=== PATIENT | male | born 1945 | race Caucasian/White ===

== ENCOUNTER → 2016-06-03 | Outpatient (CLI) | payer MEDICARE | END | disposition home or self-care (01) | LOC: YCHH 09:37 | PROVIDERS: ATTEND Family Medicine | DX: E11.319 Type 2 diabetes mellitus with unspecified diabetic retinopathy without macular edema (principal); I10 Essential (primary) hypertension; I25.10 Atherosclerotic heart disease of native coronary artery without angina pectoris; I69.993 Ataxia following unspecified cerebrovascular disease; R25.1 Tremor, unspecified ==

== ENCOUNTER → 2016-08-16 | Outpatient (CLI) | payer MEDICARE | END | disposition home or self-care (01) | LOC: YCHH 09:48 | PROVIDERS: ATTEND Family Medicine | DX: E11.319 Type 2 diabetes mellitus with unspecified diabetic retinopathy without macular edema (principal); I25.10 Atherosclerotic heart disease of native coronary artery without angina pectoris; R97.20 Elevated prostate specific antigen [PSA]; I10 Essential (primary) hypertension ==

== ENCOUNTER → 2016-11-21 | Outpatient (CLI) | payer MEDICARE | END | disposition home or self-care (01) | LOC: YCHH 09:23 | PROVIDERS: ATTEND Family Medicine | DX: E11.319 Type 2 diabetes mellitus with unspecified diabetic retinopathy without macular edema (principal); N39.0 Urinary tract infection, site not specified; E78.5 Hyperlipidemia, unspecified; D64.9 Anemia, unspecified ==

== ENCOUNTER → 2017-02-06 | Outpatient (CLI) | payer MEDICARE | END | disposition home or self-care (01) | LOC: YCHH 11:47 | PROVIDERS: ATTEND Family Medicine | DX: E11.319 Type 2 diabetes mellitus with unspecified diabetic retinopathy without macular edema (principal); I10 Essential (primary) hypertension; I25.10 Atherosclerotic heart disease of native coronary artery without angina pectoris; E78.5 Hyperlipidemia, unspecified ==

== ENCOUNTER 2017-02-27 12:40 | Emergency (ER) | payer MEDICARE ==
[2017-02-27 12:53] VITALS: TEMP 97.8
--- NOTE | 2017-02-27 13:22 | RAD ---
Portable chest INDICATION: Altered mental status hypoglycemia IMPRESSION: Mild cardiomegaly with vascular congestion and possible mild interstitial edema. No lobar consolidation. No large effusion or pneumothorax. Electronically signed by: Kenny Godinez MD 02/27/2017 1:21 PM NATIONAL ACCOUNT DIRECTOR
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
[2017-02-27 17:23] VITALS: BP 107/73; O2SAT 95
== END 2017-02-27 17:15 | disposition home or self-care (01) ==
LOC: ER 12:40
DX: E11.649 Type 2 diabetes mellitus with hypoglycemia without coma (principal); Z79.4 Long term (current) use of insulin; I51.7 Cardiomegaly; I10 Essential (primary) hypertension

== ENCOUNTER → 2017-05-08 | Outpatient (CLI) | payer MEDICARE | END | disposition home or self-care (01) | LOC: YCHH 09:40 | PROVIDERS: ATTEND Family Medicine | DX: E78.5 Hyperlipidemia, unspecified (principal); N18.9 Chronic kidney disease, unspecified; D64.9 Anemia, unspecified; E11.9 Type 2 diabetes mellitus without complications ==

== ENCOUNTER → 2017-08-14 | Outpatient (CLI) | payer MEDICARE | LOC: YCHH 09:24 | PROVIDERS: ATTEND Family Medicine | DX: E11.39 Type 2 diabetes mellitus with other diabetic ophthalmic complication (principal); N40.0 Benign prostatic hyperplasia without lower urinary tract symptoms; I25.10 Atherosclerotic heart disease of native coronary artery without angina pectoris; I10 Essential (primary) hypertension; E78.5 Hyperlipidemia, unspecified; D64.9 Anemia, unspecified; Z12.5 Encounter for screening for malignant neoplasm of prostate | CPT/HCPCS: 80053; 80061; 83036; 85025; G0103 ==

== ENCOUNTER → 2017-11-27 | Outpatient (CLI) | payer MEDICARE | LOC: YCHH 10:33 | PROVIDERS: ATTEND Family Medicine | DX: E11.39 Type 2 diabetes mellitus with other diabetic ophthalmic complication (principal); I10 Essential (primary) hypertension; E78.5 Hyperlipidemia, unspecified ==

== ENCOUNTER → 2018-02-26 | Outpatient (CLI) | payer MEDICARE | LOC: YCHH 09:48 | PROVIDERS: ATTEND Family Medicine | DX: E11.39 Type 2 diabetes mellitus with other diabetic ophthalmic complication (principal); I10 Essential (primary) hypertension; E78.5 Hyperlipidemia, unspecified; D64.9 Anemia, unspecified; N39.0 Urinary tract infection, site not specified ==

== ENCOUNTER → 2018-08-20 | Outpatient (CLI) | payer MEDICARE, OTHER | LOC: YCHH 09:37 | PROVIDERS: ATTEND Family Medicine | DX: E11.39 Type 2 diabetes mellitus with other diabetic ophthalmic complication (principal); I25.10 Atherosclerotic heart disease of native coronary artery without angina pectoris; I10 Essential (primary) hypertension ==

== ENCOUNTER → 2018-11-06 | Outpatient (CLI) | payer OTHER ==
--- NOTE | 2018-11-06 13:15 | MRI ---
EXAM DESCRIPTION: Brain w/wo Contrast CLINICAL HISTORY: DEMENTIA COMPARISON: Previous MRI of the brain May 15, 2014, previous head CT September 25, 2008 TECHNIQUE: MRI of the brain is performed according to our usual protocol including multiplanar multi sequence technique. Post gadolinium imaging is performed following administration of routine adult dose of IV gadolinium contrast. FINDINGS: Sagittal T1 images show intact corpus callosum. Prominent ventricles and sulci consistent with age-related cerebral volume loss Normal pituitary gland with normal T1 appearance of the dion and medulla and upper cervical cord. Normal signal intensity within the clivus and calvarium. Axial T2 fat sat images reveal preservation of intracranial vascular flow voids. Normal de leon matter T2 signal intensity with extensive white matter hyperintensity. Large ventricles and sulci are consistent with age related cerebral volume loss. Ventricles are more prominent than on earlier CT exam but bifrontal ventricular diameter is unchanged compared to the previous MRI of the brain May 15, 2014. The globes are asymmetrical, small on the right, with bilateral scleral banding. No abnormal fluid signal in the paranasal sinuses, tympanic cavities or mastoid air cells. Axial flair images show multifocal and confluent areas of increased signal intensity in the white matter consistent with chronic microvascular ischemic changes. The pattern is very similar to the previous study in April 2014. Diffusion weighted images are negative for focal intense increased signal intensity in the brain parenchyma to suggest restricted diffusion. ADC mapping is negative. Axial T1 precontrast images show normal de leon-white matter differentiation. No high signal intensity hemorrhagic lesion of the brain parenchyma. No subdural hematoma. Axial susceptibility weighted images are negative for focal signal loss to suggest abnormal brain parenchymal calcification or hemosiderin deposition. After IV contrast, axial T1 images show normal enhancement of intracranial vessels. No enhancing intracranial mass or abnormal parenchymal enhancement to suggest disruption of the blood brain barrier. Coronal T1 postcontrast images show normal dural sinus enhancement with normal enhancement of the pituitary gland. IMPRESSION: Senescent brain with chronic microvascular ischemic changes. No change compared to the previous study May 15, 2014. Electronically signed by: Rufino Mariano MD 11/06/2018 1:13 PM CDT
== END ==
LOC: MRI 10:47
PROVIDERS: ATTEND Family Medicine
DX: I10 Essential (primary) hypertension (principal); I67.82 Cerebral ischemia; F02.81 Dementia in other diseases classified elsewhere, unspecified severity, with behavioral disturbance

== ENCOUNTER 2019-01-06 16:17 | Inpatient (IN) | payer OTHER ==
--- NOTE | 2019-01-06 17:14 | RAD ---
EXAM DESCRIPTION: Chest,1 View XR CLINICAL HISTORY: 73 years Male, cough, mild hypoxia COMPARISON: February 27, 2017. FINDINGS: Low lung volumes accentuating the cardiomediastinal silhouette and central vasculature. Left retrocardiac opacity present. No pneumothorax or pleural effusion. IMPRESSION: 1. Prominence of the cardiomediastinal silhouette and central vasculature could be due to portable technique or edema. 2. Left retrocardiac opacity may represent atelectasis versus infiltrate. Electronically signed by: Cristhian Whitfield MD 01/06/2019 5:12 PM CDT
--- NOTE | 2019-01-06 17:14 | CT ---
EXAM: Head CLINICAL HISTORY: ams COMPARISON STUDY: MRI of the brain November 06, 2018 TECHNICAL: Non-contrasted CT images of the brain were performed. FINDINGS: There is mild diffuse cerebral and cerebellar atrophy. There is mild periventricular white matter low-density changes suggesting microvascular disease. Small basal ganglion lacunar infarcts are present. There is no intracranial hemorrhage, mass, or mass effect. There are no imaging findings that would suggest an acute territorial infarction. Prominent ventricles are similar to the prior MRI. The calvarium is intact. 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 IMPRESSION: MILD ATROPHY AND MICROVASCULAR WHITE MATTER CHANGES WITHOUT CHANGES OF AN ACUTE INTRACRANIAL ABNORMALITY. ACUTE INFARCT MAY BE INAPPARENT ON A BACKGROUND OF MICROVASCULAR DISEASE. MRI CAN BE PERFORMED IF CLINICALLY INDICATED. This exam was performed according to our departmental dose-optimization program, which includes automated exposure control, adjustment of the mA and/or kV according to patient size and/or use of iterative reconstruction technique. Electronically signed by: Gamal Hunt MD 01/06/2019 5:12 PM CDT
[2019-01-06] MEDS ORDERED: IPRATROPIUM/ALBUTEROL 3 ML VIAL NEB ONE (17:52)
[2019-01-06] MEDS ORDERED: CEFEPIME 1 GM in SODIUM CHLORIDE 0.9% 50ML 50 ML IVPB ONE (17:52)
[2019-01-06] MEDS ORDERED: AZITHROMYCIN IV 500 MG in SODIUM CHLORIDE 0.9% 250ML 250 ML IVPB ONE (17:52)
[2019-01-06] MEDS ORDERED: CEFEPIME 2 GM VIAL ONE ×2 (18:02→21:23)
[2019-01-06] MEDS ORDERED: SODIUM CHLORIDE 0.9% 50ML 50 ML ONE ×2 (18:03→21:24)
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
[2019-01-06] MEDS ORDERED: AZITHROMYCIN IV 500 MG VIAL IVPB ONE (18:38)
[2019-01-06] MEDS ORDERED: SODIUM CHLORIDE 0.9% 250ML 250 ML ONE (18:38)
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
[2019-01-06] MEDS ORDERED: SODIUM CHLORIDE 0.9% (FLUSH) 10 ML SYG IV PRN (20:37)
[2019-01-06] MEDS ORDERED: ONDANSETRON INJ 4 MG/2 ML VIAL IV PRN (20:37)
[2019-01-06] MEDS ORDERED: ACETAMINOPHEN 325 MG TAB PO PRN (20:37)
[2019-01-06] MEDS ORDERED: GLUCAGON INJ 1 MG VIAL SUBCU PRN (20:43)
[2019-01-06] MEDS ORDERED: DEXTROSE 50% 25 GM/50 ML SYG IV PRN (20:43)
[2019-01-06] MEDS ORDERED: SODIUM CHLORIDE 0.45% 1000ML 1,000 ML IVS ONE (20:55)
[2019-01-06] MEDS ORDERED: ROPINIROLE HYDROCHLORIDE 2 MG GT SCH (21:00)
[2019-01-06] MEDS ORDERED: levETIRAcetam 250 MG TAB ONE (21:22)
[2019-01-06] MEDS ORDERED: DOCUSATE SODIUM 100 MG CAP ONE (21:23)
[2019-01-06] MEDS: IV SET AND CAP CHANGE INJ INJ SCH (21:34)
[2019-01-06] MEDS: ENOXAPARIN SODIUM 40 MG/0.4 ML SYG SUBCU SCH (21:34)
[2019-01-06] MEDS: SODIUM CHLORIDE 0.9% (FLUSH) 10 ML SYG IV SCH (21:37)
[2019-01-06] MEDS ORDERED: levETIRAcetam INJ 100 MG/ML VIAL IVPB ONE (21:42)
[2019-01-06] MEDS: DOCUSATE SODIUM 100 MG GT SCH (21:47)
[2019-01-06] MEDS: levETIRAcetam SUSPENSION 100 MG/ML BTTL GT SCH (21:48)
[2019-01-06] MEDS ORDERED: ACETAMINOPHEN LIQUID 160 MG/5 ML UD PO PRN (22:49)
[2019-01-06] MEDS ORDERED: ACETAMINOPHEN IV 1000MG 100 ML ONE (22:53)
[2019-01-07] MEDS ORDERED: FLUCONAZOLE SUSPENSION 40 MG/ML BOTTLE GT ONE
[2019-01-07] MEDS: CEFEPIME 2 GM in SODIUM CHL 0.9% 50ML MIN-BAG+ 50 ML IVPB SCH ×2 (00:21→12:32)
[2019-01-07] MEDS: INSULIN LISPRO 100 UNITS/ML PEN SUBCU SCH ×4 (00:23→18:18)
[2019-01-07] MEDS: ALBUTEROL SULFATE 2.5 MG/3 ML VIAL NEB PRN ×2 (04:00→04:16)
--- NOTE | 2019-01-07 08:50 | RAD ---
XR CHEST 1 VIEW HISTORY: 73 years Male Pneumonia COMPARISON: January 06, 2019. TECHNIQUE: Single AP view of the chest. FINDINGS: Lungs: Redemonstrated diffuse interstitial prominence with patchy hazy attenuation, again suggestive of edema and/or multifocal infection. Findings appear slightly improved compared with the prior study performed January 06, 2019. Predominantly linear opacities in the left lung base most suggestive of atelectasis. No definite pleural effusion observed. Heart/Mediastinum: Cardiomediastinal silhouette is partially obscured but grossly unremarkable. Bones: No acute abnormality detected. IMPRESSION: Improving patchy multifocal airspace disease. Considerations would include infection and/or pulmonary edema. Electronically signed by: Lenny Chavarria MD 01/07/2019 8:48 AM CDT
[2019-01-07] MEDS: IPRATROPIUM/ALBUTEROL 3 ML VIAL INH SCH ×4 (08:53→21:20)
[2019-01-07] MEDS ORDERED: AZITHROMYCIN IV 500 MG in SODIUM CHLORIDE 0.9% 250ML 250 ML IVPB SCH (09:00)
[2019-01-07] MEDS ORDERED: SODIUM CHLORIDE 0.9% 250ML 250 ML ONE (09:58)
[2019-01-07] MEDS ORDERED: DOCUSATE SODIUM 100 MG CAP ONE (09:59)
[2019-01-07] MEDS ORDERED: AZITHROMYCIN IV 500 MG VIAL IVPB ONE (09:59)
[2019-01-07] MEDS: FAMOTIDINE 20 MG TAB GT SCH (10:01)
[2019-01-07] MEDS: amLODIPine BESYLATE 5 MG TAB GT SCH (10:01)
[2019-01-07] MEDS: DOCUSATE SODIUM 100 MG GT SCH (10:02)
[2019-01-07] MEDS: SODIUM CHLORIDE 0.9% (FLUSH) 10 ML SYG IV SCH ×2 (10:03→20:06)
[2019-01-07] MEDS ORDERED: levETIRAcetam INJ 100 MG/ML VIAL IVPB ONE (10:06)
[2019-01-07] MEDS: levETIRAcetam SUSPENSION 100 MG/ML BTTL GT SCH ×2 (10:21→20:04)
[2019-01-07] MEDS ORDERED: SODIUM CHL 0.9% 50ML MIN-BAG+ 50 ML IVPB ONE ×2 (12:29→19:14)
[2019-01-07] MEDS ORDERED: CEFEPIME 2 GM VIAL ONE ×2 (12:30→19:15)
[2019-01-07] MEDS: NON-FORMULARY MEDICATION 1 EA MIS GT SCH ×3 (17:58→20:07)
[2019-01-07] MEDS: DOCUSATE SODIUM 100 MG CAP GT SCH (20:04)
[2019-01-07] MEDS: ENOXAPARIN SODIUM 40 MG/0.4 ML SYG SUBCU SCH (20:04)
[2019-01-08] MEDS: CEFEPIME 2 GM in SODIUM CHL 0.9% 50ML MIN-BAG+ 50 ML IVPB SCH ×2 (00:12→13:18)
[2019-01-08] MEDS: INSULIN LISPRO 100 UNITS/ML PEN SUBCU SCH ×4 (00:12→19:07)
[2019-01-08] MEDS: NON-FORMULARY MEDICATION 1 EA MIS GT SCH ×9 (01:00→20:32)
[2019-01-08] MEDS ORDERED: MORPHINE SULFATE INJ 10 MG/ML VIAL IV ONE (01:34)
--- NOTE | 2019-01-08 01:48 | RAD ---
CLINICAL HISTORY: tachycardia COMPARISON: January 07, 2019. TECHNIQUE: XR CHEST 1 VIEW 01/08/2019 1:08 AM CDT FINDINGS: Cardiac silhouette is normal in size. There are patchy left basilar and right upper lobe opacities. There is no pleural effusion. There is no pneumothorax. There are no acute osseous findings. IMPRESSION: Suspect developing bilateral areas of pneumonia. Electronically signed by: Sai Hernandez MD 01/08/2019 1:47 AM CDT
[2019-01-08] MEDS ORDERED: VANCOMYCIN HCL INJ 1,500 MG in SODIUM CHLORIDE 0.9% 250ML 250 ML IVPB ONE (01:59)
[2019-01-08] MEDS ORDERED: ENOXAPARIN SODIUM 40 MG/0.4 ML SYG SUBCU ONE (02:08)
[2019-01-08] MEDS ORDERED: VANCOMYCIN HCL INJ 500 MG VIAL ONE (02:13)
[2019-01-08] MEDS ORDERED: SODIUM CHLORIDE 0.9% 250ML 250 ML ONE (02:13)
[2019-01-08] MEDS ORDERED: VANCOMYCIN HCL INJ 1,000 MG VIAL IVPB ONE (02:13)
[2019-01-08] MEDS: levoFLOXacin 750MG IV 750 MG in PREMIX BAG 1 BAG IVPB SCH (02:30)
[2019-01-08] MEDS: IPRATROPIUM/ALBUTEROL 3 ML VIAL INH SCH ×4 (07:43→20:43)
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
[2019-01-08] MEDS ORDERED: SODIUM CHL 0.9% 50ML MIN-BAG+ 50 ML IVPB ONE ×2 (10:28→19:15)
[2019-01-08] MEDS ORDERED: CEFEPIME 2 GM VIAL ONE ×2 (10:29→19:16)
[2019-01-08] MEDS: MORPHINE SULFATE INJ 10 MG/ML VIAL IV PRN ×3 (10:30→22:52)
[2019-01-08] MEDS: DOCUSATE SODIUM 100 MG CAP GT SCH ×2 (10:34→20:30)
[2019-01-08] MEDS: amLODIPine BESYLATE 5 MG TAB GT SCH (10:34)
[2019-01-08] MEDS: FAMOTIDINE 20 MG TAB GT SCH (10:35)
[2019-01-08] MEDS: levETIRAcetam SUSPENSION 100 MG/ML BTTL GT SCH ×2 (10:35→20:32)
[2019-01-08] MEDS: SODIUM CHLORIDE 0.9% (FLUSH) 10 ML SYG IV SCH ×2 (10:35→20:33)
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
[2019-01-08] MEDS: ENOXAPARIN SODIUM 40 MG/0.4 ML SYG SUBCU SCH (20:31)
[2019-01-09] MEDS: CEFEPIME 2 GM in SODIUM CHL 0.9% 50ML MIN-BAG+ 50 ML IVPB SCH ×3 (00:01→23:38)
[2019-01-09] MEDS: INSULIN LISPRO 100 UNITS/ML PEN SUBCU SCH ×4 (00:05→18:09)
[2019-01-09] MEDS: NON-FORMULARY MEDICATION 1 EA MIS GT SCH ×9 (00:35→22:08)
[2019-01-09] MEDS: levoFLOXacin 750MG IV 750 MG in PREMIX BAG 1 BAG IVPB SCH (02:20)
[2019-01-09] MEDS: MORPHINE SULFATE INJ 10 MG/ML VIAL IV PRN ×5 (03:03→19:59)
[2019-01-09] MEDS ORDERED: SODIUM CHL 0.9% 50ML MIN-BAG+ 50 ML IVPB ONE ×2 (07:11→19:48)
[2019-01-09] MEDS ORDERED: CEFEPIME 2 GM VIAL ONE ×2 (07:12→19:48)
[2019-01-09] MEDS: IPRATROPIUM/ALBUTEROL 3 ML VIAL INH SCH ×4 (08:15→19:46)
[2019-01-09] MEDS: amLODIPine BESYLATE 5 MG TAB GT SCH (10:06)
[2019-01-09] MEDS: levETIRAcetam SUSPENSION 100 MG/ML BTTL GT SCH ×2 (10:07→22:03)
[2019-01-09] MEDS: SODIUM CHLORIDE 0.9% (FLUSH) 10 ML SYG IV SCH ×2 (10:10→22:22)
[2019-01-09] MEDS: DOCUSATE SODIUM 100 MG CAP GT SCH ×2 (10:24→22:01)
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
[2019-01-09] MEDS: FAMOTIDINE 20 MG TAB GT SCH (12:20)
--- NOTE | 2019-01-09 16:19 | RAD ---
EXAM: XR Chest, 1 View CLINICAL HISTORY: pneumonia TECHNIQUE: Frontal view of the chest. COMPARISON: 01/08/2019 and 02/27/2017. FINDINGS: Limitations: None. Lungs: Fibrotic changes present with stable parenchymal scarring. Pleural space: Stable mild left pleural thickening. No pneumothorax. Heart: Unremarkable. No cardiomegaly. Mediastinum: Unremarkable. Bones/joints: Unremarkable. IMPRESSION: Chronic changes as above. No acute disease. Electronically signed by: Etelvina Ellsworth MD 01/09/2019 4:17 PM CDT
--- NOTE | 2019-01-09 17:47 | CT ---
EXAM DESCRIPTION: Head CLINICAL HISTORY: mental status change COMPARISON: 06 January 2019 TECHNIQUE: Non contrast cranial CT.This exam was performed according to our departmental dose-optimization program, which includes automated exposure control, adjustment of the mA and/or kV according to patient size and/or use of iterative reconstruction technique. FINDINGS: No mass lesions or mass effect are observed. Prominence of ventricular system and cortical sulci are observed consistent with atrophy. Periventricular white matter low-attenuation is noted consistent with ischemic demyelination. It is advanced for age. No intracranial hemorrhage is noted. There is evidence of prior right ophthalmic surgery. The paranasal sinuses are clear. The mastoid sinus air cells are clear. When direct comparison is made to the previous exam is been no interval change. IMPRESSION: Senescent changes are observed. There is evidence of ischemic demyelination which is advanced for age. No acute event or significant interval change is noted. Electronically signed by: Blanco Ochoa MD 01/09/2019 5:46 PM CDT
[2019-01-09] MEDS: IV SET AND CAP CHANGE INJ INJ SCH (22:01)
[2019-01-09] MEDS: ENOXAPARIN SODIUM 40 MG/0.4 ML SYG SUBCU SCH (22:04)
[2019-01-10] MEDS: INSULIN LISPRO 100 UNITS/ML PEN SUBCU SCH ×3 (00:11→11:55)
[2019-01-10] MEDS: FAMOTIDINE 20 MG TAB GT SCH (01:00)
[2019-01-10] MEDS: NON-FORMULARY MEDICATION 1 EA MIS GT SCH ×9 (01:10→20:34)
[2019-01-10] MEDS: levoFLOXacin 750MG IV 750 MG in PREMIX BAG 1 BAG IVPB SCH (02:38)
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
[2019-01-10] MEDS: IPRATROPIUM/ALBUTEROL 3 ML VIAL INH SCH ×4 (09:45→20:31)
[2019-01-10] MEDS: levETIRAcetam SUSPENSION 100 MG/ML BTTL GT SCH ×2 (10:00→20:32)
[2019-01-10] MEDS: SODIUM CHLORIDE 0.9% (FLUSH) 10 ML SYG IV SCH ×2 (11:50→20:33)
[2019-01-10] MEDS: amLODIPine BESYLATE 5 MG TAB GT SCH (11:52)
[2019-01-10] MEDS: DOCUSATE SODIUM 100 MG CAP GT SCH ×2 (11:55→20:34)
[2019-01-10] MEDS: CEFEPIME 2 GM in SODIUM CHL 0.9% 50ML MIN-BAG+ 50 ML IVPB SCH (13:00)
[2019-01-10] MEDS ORDERED: SODIUM CHL 0.9% 50ML MIN-BAG+ 50 ML IVPB ONE (20:19)
[2019-01-10] MEDS ORDERED: CEFEPIME 2 GM VIAL ONE (20:19)
[2019-01-10] MEDS: MUPIROCIN 2 % OINT 22 GM TUBE TOP SCH (20:32)
[2019-01-10] MEDS: ENOXAPARIN SODIUM 40 MG/0.4 ML SYG SUBCU SCH (20:32)
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
[2019-01-11] MEDS: INSULIN LISPRO 100 UNITS/ML PEN SUBCU SCH ×5 (00:11→18:27)
[2019-01-11] MEDS: CEFEPIME 2 GM in SODIUM CHL 0.9% 50ML MIN-BAG+ 50 ML IVPB SCH ×3 (00:14→23:29)
[2019-01-11] MEDS: NON-FORMULARY MEDICATION 1 EA MIS GT SCH ×9 (01:58→21:25)
[2019-01-11] MEDS: levoFLOXacin 750MG IV 750 MG in PREMIX BAG 1 BAG IVPB SCH (02:02)
[2019-01-11] MEDS: IPRATROPIUM/ALBUTEROL 3 ML VIAL INH SCH ×4 (08:36→20:07)
[2019-01-11] MEDS: amLODIPine BESYLATE 5 MG TAB GT SCH (08:38)
[2019-01-11] MEDS: DOCUSATE SODIUM 100 MG CAP GT SCH ×3 (08:39→21:10)
[2019-01-11] MEDS: MUPIROCIN 2 % OINT 22 GM TUBE TOP SCH ×3 (08:39→20:37)
[2019-01-11] MEDS: SODIUM CHLORIDE 0.9% (FLUSH) 10 ML SYG IV SCH ×2 (08:39→20:38)
[2019-01-11] MEDS: levETIRAcetam SUSPENSION 100 MG/ML BTTL GT SCH ×2 (08:39→20:37)
[2019-01-11] MEDS: FAMOTIDINE 20 MG TAB GT SCH (08:39)
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
[2019-01-11] MEDS ORDERED: SODIUM CHL 0.9% 50ML MIN-BAG+ 50 ML IVPB ONE (12:02)
[2019-01-11] MEDS ORDERED: CEFEPIME 2 GM VIAL ONE ×2 (12:03→19:12)
[2019-01-11] MEDS: ENOXAPARIN SODIUM 40 MG/0.4 ML SYG SUBCU SCH (20:37)
[2019-01-12] MEDS: INSULIN LISPRO 100 UNITS/ML PEN SUBCU SCH ×4 (00:20→18:14)
[2019-01-12] MEDS: NON-FORMULARY MEDICATION 1 EA MIS GT SCH ×9 (01:03→20:29)
[2019-01-12] MEDS: levoFLOXacin 750MG IV 750 MG in PREMIX BAG 1 BAG IVPB SCH (02:26)
[2019-01-12] MEDS: IPRATROPIUM/ALBUTEROL 3 ML VIAL INH SCH ×4 (08:25→21:03)
[2019-01-12] MEDS: MUPIROCIN 2 % OINT 22 GM TUBE TOP SCH ×3 (09:58→20:28)
[2019-01-12] MEDS: DOCUSATE SODIUM 100 MG CAP GT SCH ×2 (09:58→20:29)
[2019-01-12] MEDS: levETIRAcetam SUSPENSION 100 MG/ML BTTL GT SCH ×2 (09:59→20:29)
[2019-01-12] MEDS: FAMOTIDINE 20 MG TAB GT SCH (09:59)
[2019-01-12] MEDS: amLODIPine BESYLATE 5 MG TAB GT SCH (09:59)
[2019-01-12] MEDS: SODIUM CHLORIDE 0.9% (FLUSH) 10 ML SYG IV SCH ×2 (10:03→20:29)
[2019-01-12] MEDS ORDERED: SODIUM CHL 0.9% 50ML MIN-BAG+ 50 ML IVPB ONE ×2 (12:36→19:24)
[2019-01-12] MEDS ORDERED: CEFEPIME 2 GM VIAL ONE ×2 (12:37→19:24)
[2019-01-12] MEDS: CEFEPIME 2 GM in SODIUM CHL 0.9% 50ML MIN-BAG+ 50 ML IVPB SCH ×2 (12:38→23:38)
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
[2019-01-12] MEDS: ENOXAPARIN SODIUM 40 MG/0.4 ML SYG SUBCU SCH (20:29)
[2019-01-12] MEDS: IV SET AND CAP CHANGE INJ INJ SCH (20:29)
[2019-01-13] MEDS: INSULIN LISPRO 100 UNITS/ML PEN SUBCU SCH ×4 (00:40→17:54)
[2019-01-13] MEDS: NON-FORMULARY MEDICATION 1 EA MIS GT SCH ×9 (00:41→20:21)
[2019-01-13] MEDS: levoFLOXacin 750MG IV 750 MG in PREMIX BAG 1 BAG IVPB SCH (02:20)
[2019-01-13] MEDS: IPRATROPIUM/ALBUTEROL 3 ML VIAL INH SCH ×3 (07:23→20:25)
[2019-01-13] MEDS: DOCUSATE SODIUM 100 MG CAP GT SCH ×2 (08:44→20:20)
[2019-01-13] MEDS: amLODIPine BESYLATE 5 MG TAB GT SCH (08:47)
[2019-01-13] MEDS: levETIRAcetam SUSPENSION 100 MG/ML BTTL GT SCH ×2 (08:47→20:20)
[2019-01-13] MEDS: FAMOTIDINE 20 MG TAB GT SCH (08:47)
[2019-01-13] MEDS: SODIUM CHLORIDE 0.9% (FLUSH) 10 ML SYG IV SCH ×2 (08:48→20:22)
[2019-01-13] MEDS: MUPIROCIN 2 % OINT 22 GM TUBE TOP SCH ×3 (08:48→20:19)
[2019-01-13] MEDS ORDERED: SODIUM CHL 0.9% 50ML MIN-BAG+ 50 ML IVPB ONE ×2 (11:17→19:38)
[2019-01-13] MEDS ORDERED: CEFEPIME 2 GM VIAL ONE ×2 (11:17→19:38)
[2019-01-13] MEDS: CEFEPIME 2 GM in SODIUM CHL 0.9% 50ML MIN-BAG+ 50 ML IVPB SCH ×2 (11:23→23:53)
[2019-01-13] MEDS: ENOXAPARIN SODIUM 40 MG/0.4 ML SYG SUBCU SCH (20:20)
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
[2019-01-14] MEDS: INSULIN LISPRO 100 UNITS/ML PEN SUBCU SCH ×3 (01:00→12:00)
[2019-01-14] MEDS: NON-FORMULARY MEDICATION 1 EA MIS GT SCH ×6 (01:02→13:20)
[2019-01-14] MEDS: levoFLOXacin 750MG IV 750 MG in PREMIX BAG 1 BAG IVPB SCH (02:19)
[2019-01-14] MEDS ORDERED: SODIUM CHL 0.9% 50ML MIN-BAG+ 50 ML IVPB ONE (07:30)
[2019-01-14] MEDS ORDERED: CEFEPIME 2 GM VIAL ONE (07:31)
[2019-01-14] MEDS: IPRATROPIUM/ALBUTEROL 3 ML VIAL INH SCH ×2 (08:10→12:04)
[2019-01-14] MEDS: MUPIROCIN 2 % OINT 22 GM TUBE TOP SCH (08:17)
[2019-01-14] MEDS: DOCUSATE SODIUM 100 MG CAP GT SCH (08:18)
[2019-01-14] MEDS: amLODIPine BESYLATE 5 MG TAB GT SCH (08:19)
[2019-01-14] MEDS: FAMOTIDINE 20 MG TAB GT SCH (08:19)
[2019-01-14] MEDS: SODIUM CHLORIDE 0.9% (FLUSH) 10 ML SYG IV SCH (08:21)
[2019-01-14] MEDS: levETIRAcetam SUSPENSION 100 MG/ML BTTL GT SCH (08:30)
[2019-01-14] MEDS: CEFEPIME 2 GM in SODIUM CHL 0.9% 50ML MIN-BAG+ 50 ML IVPB SCH (11:55)
[2019-01-14 12:06] VITALS: O2SAT 98
[2019-01-14 12:09] VITALS: BP 103/68; TEMP 97.9
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
== END 2019-01-14 15:40 | DRG 871 ==
LOC: ER 16:17 → MS 19:34 → OBSVTOIN 19:34
PROVIDERS: ADMIT Nurse Practitioner Acute Care; ATTEND Nurse Practitioner
DX: A41.9 Sepsis, unspecified organism (principal); J18.1 Lobar pneumonia, unspecified organism; J44.0 Chronic obstructive pulmonary disease with (acute) lower respiratory infection; J44.1 Chronic obstructive pulmonary disease with (acute) exacerbation; L89.214 Pressure ulcer of right hip, stage 4; R64 Cachexia; B37.49 Other urogenital candidiasis; G20 Parkinson's disease; R09.02 Hypoxemia; G40.909 Epilepsy, unspecified, not intractable, without status epilepticus; S06.6X9S Traumatic subarachnoid hemorrhage with loss of consciousness of unspecified duration, sequela; V89.2XXS Person injured in unspecified motor-vehicle accident, traffic, sequela; E11.9 Type 2 diabetes mellitus without complications; E78.5 Hyperlipidemia, unspecified; I10 Essential (primary) hypertension; M19.90 Unspecified osteoarthritis, unspecified site; Z87.891 Personal history of nicotine dependence; Z74.01 Bed confinement status; Y95 Nosocomial condition; Z66 Do not resuscitate; Z93.1 Gastrostomy status; Z68.22 Body mass index [BMI] 22.0-22.9, adult